=== PATIENT | female | born 1985 | race Hispanic/Latino ===

== ENCOUNTER 2021-10-28 21:29 | Inpatient (IN) | payer OTHER ==
[~2021-10-28] VITALS: Ht 170.2 cm; Wt 70.3 kg
[2021-10-28] MEDS ORDERED: EPHEDRINE SULFATE 50 MG/ML AMPULE IVP PRN (22:00)
[2021-10-28] MEDS ORDERED: LACTATED RINGERS 500 ML 500 ML IV PRN (22:00)
[2021-10-28] MEDS ORDERED: ROPIVACAINE 0.2% 100ML VIAL 100 ML EP SCH (22:00)
[2021-10-28] MEDS ORDERED: DINOPROSTONE 10 MG VAGINAL SUPP VG SCH (22:00)
[2021-10-28] MEDS ORDERED: NALOXONE HCL 0.4 MG/1 ML ML IV PRN (22:00)
[2021-10-28] MEDS ORDERED: PROMETHAZINE HCL 25 MG/ML 1ML AMPULE IM PRN (22:00)
[2021-10-28] MEDS ORDERED: LACTATED RINGERS 1000ML 1,000 ML IV PRN (22:00)
[2021-10-28] MEDS ORDERED: MEPERIDINE-PF 50 MG/ML SYG IVP PRN (22:00)
[2021-10-28 22:29] LABS: APPEARANCE,URINE CLEAR (CLEAR); BILIRUBIN,URINE NEGATIVE (NEGATIVE); COLOR,URINE YELLOW (YELLOW); GLUCOSE, URINE (UA) NEGATIVE (NEGATIVE); KETONES,URINE 5 mg/dL (NEGATIVE); LEUKOCYTE ESTERASE ,URINE NEGATIVE (NEGATIVE); NITRATE,URINE NEGATIVE (NEGATIVE); OCCULT BLOOD,URINE TRACE-INTACT (NEGATIVE); PH,URINE 5.5 (5.0-8.0); PROTEIN,URINE NEGATIVE (NEGATIVE); UROBILINOGEN,URINE 0.2 mg/dL (0.2-1.0)
[2021-10-28 22:38] LABS: BACTERIA,URINE Moderate /HPF (None Seen); MUCUS,URINE Moderate LPF (None Seen); RBC,URINE None Seen /HPF (0-1); SQUAMOUS EPITHELIAL CELL,UR Few /HPF (0-2); WBC,URINE 0-1 /HPF (0-1)
[2021-10-28 23:46] LABS: HEMATOCRIT 37.3 % (36-48); MEAN CORPUSCULAR HEMOGLOBIN 27.5 pg (27.0-33.0); MEAN CORPUSCULAR HGB CONC 33.2 g/dL (32.0-36.0); MEAN CORPUSCULAR VOLUME 82.7 fL (79-99); RED BLOOD CELL COUNT(AUTO) 4.51 MIL/uL (4.00-5.50); RED CELL DISTRIBUTION WIDTH 15.1 % (11.0-15.5); WHITE BLOOD COUNT (AUTO) 10.5 K/uL (4.8-10.8)
[2021-10-29] MEDS ORDERED: OXYTOCIN-LR 20 UNITS/1000 ML 1,000 ML IV SCH ×2 (04:00→17:30)
[2021-10-29] MEDS ORDERED: FENTANYL CITRATE PF 50 MCG/1 ML 2ML VIAL ONE (09:13)
[2021-10-29 10:05] LABS: RAPID PLASMA REAGIN NONREACTIVE (NONREACTIVE)
[2021-10-29] MEDS ORDERED: LIDOCAINE HCL 1% 10 ML VIAL ONE (16:43)
[2021-10-29] MEDS ORDERED: MEASLES/MUMPS/RUBELLA VACCINE, LIVE 0.5 ML/VIAL SQ PRN (17:30)
[2021-10-29] MEDS ORDERED: LANOLIN 30GM OINTMENT TP PRN (17:30)
[2021-10-29] MEDS ORDERED: ACETAMINOPHEN 325 MG TAB PO PRN (17:30)
[2021-10-29] MEDS ORDERED: BENZOCAINE/LANOLIN/ALOE VERA 60 ML AEROSOL TP PRN (17:30)
[2021-10-29] MEDS ORDERED: WITCH HAZEL 1 PAD TP PRN (17:30)
[2021-10-29] MEDS ORDERED: DIPH,PERTUSS(ACELL),TET VAC/PF 0.5 ML VIAL IM PRN (17:30)
[2021-10-29] MEDS: IBUPROFEN 600 MG TABLET PO PRN (17:46)
[2021-10-29 20:25] VITALS: BP 131/88
[2021-10-29] MEDS: ACETAMINOPHEN WITH CODEINE 1 TAB TAB PO PRN (22:29)
[2021-10-29] MEDS: DOCUSATE SODIUM 100 MG CAP PO SCH (22:29)
[2021-10-29 23:23] VITALS: BP 113/82
[2021-10-29] MEDS ORDERED: IRON (23:31)
[2021-10-29] MEDS ORDERED: PREN1TAB80 PO (23:31)
[2021-10-30 04:39] VITALS: BP 106/72
[2021-10-30] MEDS: ACETAMINOPHEN WITH CODEINE 1 TAB TAB PO PRN (06:06)
[2021-10-30 06:20] LABS: HEMATOCRIT 29.3 % (36-48); MEAN CORPUSCULAR HEMOGLOBIN 28.3 pg (27.0-33.0); MEAN CORPUSCULAR HGB CONC 33.4 g/dL (32.0-36.0); MEAN CORPUSCULAR VOLUME 84.7 fL (79-99); RED BLOOD CELL COUNT(AUTO) 3.46 MIL/uL (4.00-5.50); RED CELL DISTRIBUTION WIDTH 14.9 % (11.0-15.5); WHITE BLOOD COUNT (AUTO) 13.5 K/uL (4.8-10.8)
[2021-10-30 07:20] VITALS: BP 128/90
[2021-10-30 08:14] LABS: HEPATITIS Bs ANTIGEN SCREEN P Negative (Negative)
[2021-10-30] MEDS: IBUPROFEN 600 MG TABLET PO PRN ×2 (10:38→16:27)
[2021-10-30] MEDS: DOCUSATE SODIUM 100 MG CAP PO SCH (10:38)
[2021-10-30 11:25] VITALS: BP 124/87
[2021-10-30 16:26] VITALS: BP 95/56
== END 2021-10-30 18:20 | disposition home or self-care (01) | DRG 768 ==
LOC: LDH 21:29 → WSH 10-29 20:20
PROVIDERS: ADMIT Obstetrics & Gynecology; ATTEND Obstetrics & Gynecology
PROC: 10E0XZZ Delivery of Products of Conception, External Approach (ICD-10-PCS; principal; 2021-10-29)
PROC: 0DQR0ZZ Repair Anal Sphincter, Open Approach (ICD-10-PCS; 2021-10-29)
PROC: 3E0R3BZ Introduction of Anesthetic Agent into Spinal Canal, Percutaneous Approach (ICD-10-PCS; 2021-10-29)
PROC: 00HU33Z Insertion of Infusion Device into Spinal Canal, Percutaneous Approach (ICD-10-PCS; 2021-10-29)
PROC: 10907ZC Drainage of Amniotic Fluid, Therapeutic from Products of Conception, Via Natural or Artificial Opening (ICD-10-PCS; 2021-10-29)
DX: O99.344 Other mental disorders complicating childbirth (principal); Z37.0 Single live birth; O70.20 Third degree perineal laceration during delivery, unspecified; F41.9 Anxiety disorder, unspecified; Z3A.41 41 weeks gestation of pregnancy
CPT/HCPCS: 36415; 81001; 85027; 86592; 86701; 86850; 86900; 86901; 87088; 87340; 87390; A4314; G0378; J2590; J2795; J3010; J3490; J7120